=== PATIENT | male | born 1985 | race Hispanic/Latino ===

== ENCOUNTER 2024-12-04 20:51 | Emergency (ER) | payer SELFPAY ==
[2024-12-04] MEDS ORDERED: LIDOCAINE 1% 20 ML MDV ONE (21:19)
[2024-12-04] MEDS ORDERED: DIPHENHYDRAMINE 50 MG/ML VIAL ONE (21:19)
[2024-12-04] MEDS ORDERED: NA CHLORIDE 0.9% 1,000 ML ONE (21:19)
[2024-12-04] MEDS ORDERED: TETRACAINE HCL 0.5% 4ML OPTH ONE (21:19)
[2024-12-04] MEDS ORDERED: METOCLOPRAMIDE 10 MG/2mL INJ ONE (21:19)
[2024-12-04] MEDS ORDERED: KETOROLAC 30 MG/ML INJ ONE (21:19)
[2024-12-04] MEDS ORDERED: FLUORESCEIN SODIUM 1 MG/WRAP ONE (21:40)
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
--- NOTE | 2024-12-04 22:11 | RAD REPORT ---
EXAM: CT brain without contrast HISTORY: Headache status post head injury COMPARISON: None TECHNIQUE: Multiple contiguous axial images were obtained and a CT of the brain without contrast.. Sagittal and coronal reconstruction performed. Automated exposure control, adjustment of the mA and/or kV according to patient size, and/or iterative reconstruction. Unless otherwise specified, incidental f indings do not require dedicated imaging follow-up FINDINGS: An intracranial bleed is not seen Ventricles are normal caliber No extra-axial fluid collection noted No significant hypodensity within the brain No fluid within the visualized sinuses or mastoids noted. IMPRESSION: No acute intracranial abnormality noted. If the patient continues to have symptoms to suggest an acute intracranial abnormality then MRI of th e brain would be recommended.
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
[2024-12-05 02:14] VITALS: TEMP 97.4
[2024-12-05 02:15] VITALS: O2SAT 99
[2024-12-05 02:17] VITALS: BP 171/90
== END 2024-12-05 00:18 | disposition home or self-care (01) ==
LOC: ER 20:51
PROC: 0JQ13ZZ Repair Face Subcutaneous Tissue and Fascia, Percutaneous Approach (ICD-10-PCS; principal; 2024-12-04)
DX: S01.112A Laceration without foreign body of left eyelid and periocular area, initial encounter (principal); S05.12XA Contusion of eyeball and orbital tissues, left eye, initial encounter; S09.90XA Unspecified injury of head, initial encounter; Y00.XXXA Assault by blunt object, initial encounter; Y93.89 Activity, other specified; Y92.89 Other specified places as the place of occurrence of the external cause
CPT/HCPCS: 12013; 70450; 70486; 76377; 96361; 96374; 96375; 99284; J1200; J1885; J2003; J2765; J7030